=== PATIENT | female | born 1990 | race Caucasian/White ===

== ENCOUNTER 2018-11-15 11:35 | Emergency (ER) | payer OTHER ==
[~2018-11-15] VITALS: Ht 160 cm; Wt 69.8 kg
[2018-11-15] MEDS ORDERED: AUGMENTIN 875-1 EACH PO (12:16)
[2018-11-15] MEDS ORDERED: NABUMETONE 750750 M1 PO (12:16)
[2018-11-15] MEDS ORDERED: ACETAMINOPHEN-1 EAC1 PO (12:16)
[2018-11-15 12:26] VITALS: BP 140/96
== END 2018-11-15 12:27 | disposition home or self-care (01) ==
LOC: M.ERS 11:35
DX: H66.91 Otitis media, unspecified, right ear (principal); H65.92 Unspecified nonsuppurative otitis media, left ear; F17.210 Nicotine dependence, cigarettes, uncomplicated

== ENCOUNTER 2020-06-08 10:05 | Emergency (ER) | payer OTHER, MEDICAID ==
[~2020-06-08] VITALS: Ht 160 cm; Wt 65.8 kg
[~2020-06-08 10:05] MED LIST: ACETAMINOPHEN-1 EAC1 PO; AUGMENTIN 875-1 EACH PO; NABUMETONE 750750 M1 PO
[2020-06-08 10:15] VITALS: BP 151/116
[2020-06-08] MEDS ORDERED: BACTRIM DS TAB1 EACH PO (10:38)
[2020-06-08] MEDS ORDERED: KEFLEX500 M1 PO (10:38)
== END 2020-06-08 10:46 | disposition home or self-care (01) ==
LOC: M.ERS 10:05
DX: L03.115 Cellulitis of right lower limb (principal); S81.811D Laceration without foreign body, right lower leg, subsequent encounter; X58.XXXD Exposure to other specified factors, subsequent encounter; F17.210 Nicotine dependence, cigarettes, uncomplicated

== ENCOUNTER 2020-07-13 11:56 | Emergency (ER) | payer OTHER, MEDICAID ==
[~2020-07-13] VITALS: Ht 160 cm; Wt 65.3 kg
[~2020-07-13 11:56] MED LIST changes: +BACTRIM DS TAB1 EACH PO; +KEFLEX500 M1 PO
[2020-07-13] MEDS ORDERED: NORCO5 PO (14:33)
[2020-07-13] MEDS ORDERED: ZANAFLEX4 MG PO (14:33)
[2020-07-13] MEDS ORDERED: IBUPROFEN 800800 M1 PO (14:33)
[2020-07-13 14:50] VITALS: BP 135/81
== END 2020-07-13 14:52 | disposition home or self-care (01) ==
LOC: M.ERS 11:56
DX: S16.1XXA Strain of muscle, fascia and tendon at neck level, initial encounter (principal); F17.210 Nicotine dependence, cigarettes, uncomplicated; X50.9XXA Other and unspecified overexertion or strenuous movements or postures, initial encounter; Y93.89 Activity, other specified; Y92.89 Other specified places as the place of occurrence of the external cause; Y99.8 Other external cause status